=== PATIENT | male | born 1985 | race American Indian/Alaskan Native ===

== ENCOUNTER 2022-01-18 05:04 | Emergency (ER) | payer BC ==
[2022-01-18 05:15] VITALS: BP 172/99
--- NOTE | 2022-01-18 05:52 | Emergency Department Report ---
ED Male HPI - General Chief complaint: Urogenital-Male Stated complaint: UNCONTROABLE ERECTION Time Seen by Provider: 01/18/22 05:51 Source: patient Mode of arrival: Ambulatory Limitations: No Limitations - History of Present Illness Initial comments: PENILE ERECTION SINCE 0030 HRS AFTER TAKING AN UNKNOWN INJECTION FROM HIS FRIEND AT 0000 HRS. STATES PAINFUL MD Complaint: other (priapism ) -: Sudden, hour(s) Location: penis Radiation: none Improves with: none Worsens with: none denies: denies other symptoms, discharge, swelling - Related Data Allergies Allergy/AdvReac Type Severity Reaction Status Date / Time No Known Allergies Allergy Verified 01/18/22 05:18 ED Review of Systems ROS: Stated complaint: UNCONTROABLE ERECTION Other details as noted in HPI Constitutional: denies: chills, fever Eyes: denies: eye pain, eye discharge, vision change ENT: denies: ear pain, throat pain Respiratory: denies: cough, shortness of breath, wheezing Cardiovascular: denies: chest pain, palpitations Endocrine: no symptoms reported Gastrointestinal: denies: abdominal pain, nausea, diarrhea Genitourinary: denies: urgency, dysuria Musculoskeletal: denies: back pain, joint swelling, arthralgia Skin: denies: rash, lesions Neurological: denies: headache, weakness, paresthesias Psychiatric: denies: anxiety, depression Hematological/Lymphatic: denies: easy bleeding, easy bruising ED Past Medical Hx - Past Medical History Previous Medical History?: No Hx Hypertension: No ED Physical Exam - General Limitations: No Limitations General appearance: alert, in no apparent distress - Head Head exam: Present: atraumatic, normocephalic - Eye Eye exam: Present: normal appearance - ENT ENT exam: Present: mucous membranes moist - Neck Neck exam: Present: normal inspection - Respiratory Respiratory exam: Present: normal lung sounds bilaterally. Absent: respiratory distress - Cardiovascular Cardiovascular Exam: Present: regular rate, normal rhythm. Absent: systolic murmur, diastolic murmur, rubs, gallop - GI/Abdominal GI/Abdominal exam: Present: soft, normal bowel sounds - Rectal Rectal exam: Present: deferred - exam: Present: other (priapism ) - Extremities Exam Extremities exam: Present: normal inspection - Back Exam Back exam: Present: normal inspection - Neurological Exam Neurological exam: Present: alert, oriented X3 - Psychiatric Psychiatric exam: Present: normal affect, normal mood - Skin Skin exam: Present: warm, dry, intact, normal color. Absent: rash ED Course Vital Signs 01/18/22 01/18/22 05:12 06:29 Temperature 98.8 F Pulse Rate 91 H Respiratory 18 Rate Blood Pressure 172/99 O2 Sat by Pulse 97 99 Oximetry ED Medical Decision Making - Medical Decision Making evacuation using 23 butterfly needle, successfull Critical care attestation.: If time is entered above; I have spent that time in minutes in the direct care of this critically ill patient, excluding procedure time. ED Disposition Clinical Impression: Priapism Disposition: 01 HOME / SELF CARE / HOMELESS Is pt being admited?: No Does the pt Need Aspirin: No Condition: Stable Instructions: Priapism Referrals: OCTAVIANO SPARSK MD [Primary Care Provider] - 3-5 Days
== END 2022-01-18 06:53 | disposition home or self-care (01) ==
LOC: ED 05:04
DX: N48.30 Priapism, unspecified (principal)
CPT/HCPCS: 99282